=== PATIENT | female | born 1975 | race Two or more races ===

== ENCOUNTER 2023-08-12 22:11 | Emergency (ER) | payer OTHER ==
[~2023-08-12] VITALS: Ht 165.1 cm; Wt 54.4 kg
[2023-08-12] MEDS ORDERED: OXYCODONE/APAP 5-325 MG TABLET PO ONE (22:30)
[2023-08-12] MEDS ORDERED: OXYCODONE/APAP 5-325 MG TABLET ONE (22:34)
[2023-08-12] MEDS ORDERED: ACET1TAB23 PO (22:47)
[2023-08-12 23:11] VITALS: BP 126/72; TEMP 98.2; O2SAT 98
== END 2023-08-12 23:12 | disposition home or self-care (01) ==
LOC: ER 22:11
DX: S52.501A Unspecified fracture of the lower end of right radius, initial encounter for closed fracture (principal); J45.909 Unspecified asthma, uncomplicated; Z88.6 Allergy status to analgesic agent; Z79.899 Other long term (current) drug therapy; W01.0XXA Fall on same level from slipping, tripping and stumbling without subsequent striking against object, initial encounter; Y93.89 Activity, other specified; Y92.89 Other specified places as the place of occurrence of the external cause; Y99.8 Other external cause status
CPT/HCPCS: 73110; A4663